=== PATIENT | male | born 1995 | race Caucasian/White ===

== ENCOUNTER 2018-03-09 13:24 | Emergency (ER) | payer BC ==
--- NOTE | 2018-03-09 13:30 | ER Report ---
History and Physical Time Seen By MD: 13:28 HPI/ROS 23-year-old male otherwise healthy who was bit by a a dog approximately 10 days ago. He was walking past someone who was walking her dog on a leash. He states that he got too close to the dog, which he describes possibly as an [place] beard, at which point the dog bit him in the left thigh. At the time he did not realize that the bite had broken his skin, so he did not get information from the sewer system supervisor about the dog. The past 10 days and will control has been attempting to locate the sewer system supervisor and the dog without success. After 10 days he feels as if he should go ahead and seek treatment for rabies vaccination. He said the actual bite has healed well and there is no evidence of infection. Allergies: Coded Allergies: No Known Drug Allergies (Unverified , 03/09/18) Reviewed Nurses Notes: Yes Hx Smoking: No Smoking Status: Never Smoker Exposure to Second Hand Smoke?: No Hx Substance Use Disorder: No Hx Alcohol Use: No Constitutional Vital Sign - Last 24 Hours 03/09/18 13:32 Temp 98.2 Pulse 96 Resp 20 B/P (MAP) 139/90 Pulse Ox 95 O2 Delivery Room Air Physical Exam General Appearance: The patient is alert, has no immediate need for airway protection and no current signs of toxicity. Eyes: Pupils equal and round no injection. Extremities have full range of motion and are non tender. Skin: 1 cm well healing superficial wound to the lateral left thigh DIFFERENTIAL DIAGNOSIS: After history and physical exam differential diagnosis was considered for wound infection, exposure to rabies. Medical Decision Making ED Course/Re-evaluation ED Course 23-year-old male who was bit by an unknown dog approximately 10 days ago. He presents with a well-healing superficial burn to his left side, however he is in need of rabies vaccine. He was given the immunoglobulin as well as the 1st of the vaccines. 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 I counseled him that he will need additional vaccines on day 3, 7 and 14. I do not think he needs stay 28. I think this is very low risk given the dog was somewhat provoked by him walking by, and the wound is extremely superficial. He does not need any antibiotics at this time. Decision to Disposition Date: Mar 09, 2018 Decision to Disposition Time: 14:37 Depart Departure Latest Vital Signs Vital Signs Date Time Temp Pulse Resp B/P (MAP) Pulse Ox O2 Delivery O2 Flow Rate FiO2 03/09/18 13:32 98.2 96 20 139/90 95 Room Air Impression: Primary Impression: Need for rabies vaccination Condition: Improved Disposition: HOME OR SELF-CARE Patient Instructions: Rabies Vaccine (ED) CHELO JOHNSON MD Mar 09, 2018 13:30
[2018-03-09] MEDS ORDERED: RABIES IMM GLOB(HUMAN) 150U/ML IM ONLY STA (13:44)
[2018-03-09] MEDS ORDERED: RABIES VAC(HUMAN) DIPL 2.5/KIT IM ONLY ONE (13:45)
[2018-03-09] MEDS ORDERED: RABIES IMM GLOB(HUMAN) 150U/ML IM ONLY ONE ×2 (14:20)
[2018-03-09 14:47] VITALS: BP 125/82
== END 2018-03-09 14:41 | disposition home or self-care (01) ==
LOC: ER 13:32
DX: S70.372A Other superficial bite of left thigh, initial encounter (principal)
CPT/HCPCS: 90376; 90471; 90675; 96372; 99283

== ENCOUNTER 2018-03-23 08:07 | Outpatient (RCR) | payer BC ==
[2018-03-12 09:25] VITALS: BP 130/84
[2018-03-16 09:11] VITALS: BP 132/81
[~2018-03-23 08:07] MED LIST: RABIES VAC(HUMAN) DIPL 2.5/KIT IM ONLY ONE
[2018-03-23] MEDS ORDERED: RABIES VAC(HUMAN) DIPL 2.5/KIT IM ONLY ONE (08:20)
[2018-03-23 08:33] VITALS: BP 125/78
== END 2018-03-31 11:18 | disposition home or self-care (01) ==
LOC: SPU 08:07
PROVIDERS: ATTEND Family Medicine
DX: T14.8XXA Other injury of unspecified body region, initial encounter (principal); W54.0XXA Bitten by dog, initial encounter
CPT/HCPCS: 90471; 90675